=== PATIENT | male | born 1950 | race Caucasian/White ===

== ENCOUNTER 2017-09-27 10:59 | Inpatient (IN) | payer OTHER, BC ==
[2017-09-27] MEDS: NACHLORIDE 0.45% 1,000 ML IV SCH (12:40)
[2017-09-27 12:41] LABS: Absolute Monocytes 0.8 K/uL (0.1-1.3); Absolute Neutrophil 4.8 K/uL (1.8-8.0); Basophils % 0.6 % (0-1.3); Hematocrit 40.9 % (39.6-49.0); Lymphocytes % 25.6 % (15.3-44.8); MCH 30.1 pg (27.0-35.0); MCV 87.3 fL (80-100); MPV 8.4 fL (7.6-11.3); RBC Red Blood Cell Count 4.69 M/uL (4.33-5.43)
[2017-09-27 13:00] LABS: Urine Appearance CLEAR; Urine Bilirubin NEGATIVE (NEG); Urine Blood NEGATIVE (NEG); Urine Color YELLOW; Urine Glucose NEGATIVE (NEG); Urine Protein NEGATIVE (NEG); Urine Urobilinogen 0.2 mg/dL (0.2-1.0)
[2017-09-27] MEDS ORDERED: VANCOMYCIN 1.75 GM in NA CHLORIDE 0.9% 500 ML IVPB SCH (13:00)
[2017-09-27 13:05] LABS: Urine Microscopic Reflex NO UMIC
[2017-09-27 13:10] LABS: Albumin 3.7 g/dL (3.4-5.0); Bilirubin Total 0.7 mg/dL (0.2-1.0); Potassium 4.7 mmol/L (3.5-5.1); Protein, Total 7.5 g/dL (6.4-8.2)
[2017-09-27] MEDS: ACETAMINOPHEN 500 MG TAB PO PRN ×2 (14:06→20:39)
[2017-09-27 14:42] VITALS: O2SAT 98
[2017-09-27] MEDS ORDERED: CYCLOBENZAPRINE 10 MG TAB PO PRN (16:52)
--- NOTE | 2017-09-27 17:15 | RAD REPORT ---
EXAM DESCRIPTION: RAD - Foot Left 2 View - 09/27/2017 4:58 pm CLINICAL HISTORY: Left Great Toe Infected Pain and swelling COMPARISON: 11/01/2016 FINDINGS: Soft tissue swelling is seen about the great toe. No subcutaneous air is seen. No fracture or aggressive marrow lesion. No definitive finding seen to suggest osteomyelitis. If osteomyelitis r emains a clinical concern, MR imaging of would be recommended given its greater sensitivity.
[2017-09-27] MEDS: VALSARTAN 160 MG TAB PO SCH (20:38)
[2017-09-28] MEDS ORDERED: LANSOPRAZOLE PO SCH (09:00)
[2017-09-28] MEDS ORDERED: TERAZOSIN HCL 5 MG CAP PO SCH (09:00)
--- NOTE | 2017-09-28 09:06 | RAD REPORT ---
EXAM DESCRIPTION: US - Abdomen Exam Complete - 09/28/2017 7:59 am CLINICAL HISTORY: Abdominal pain. elevated liver enzymes COMPARISON: No comparisons FINDINGS: Diffuse fatty liver is noted. No focal liver lesions or intrahepatic biliary dilatation is seen. Cholecystectomy. Common bile duct is normal in caliber measuring 7 mm. The right kidney has been removed previously. The left kidney has a normal appearance measuring 11.1 x 5.8 x 5.5 cm. No hydronephrosis or mass. The spleen is normal in size measuring 13 cm. The pancreas and aorta are obscured by bowel gas. The visualized aspects of the IVC are grossly normal. IMPRESSION: Fatty liver. Cholecystectomy and right nephrectomy.
[2017-09-28] MEDS: VALSARTAN 160 MG TAB PO SCH (09:10)
[2017-09-28] MEDS: PANTOPRAZOLE 40MG TABLET PO SCH (09:16)
[2017-09-28] MEDS: NACHLORIDE 0.45% 1,000 ML IV SCH ×2 (09:19→13:23)
[2017-09-28] MEDS ORDERED: NA CHLORIDE 0.9% 1,000 ML IV ONE (10:51)
[2017-09-28 11:53] VITALS: BMI 30.8
[2017-09-28 12:09] LABS: Absolute Lymphocytes (CBC) 1.4 K/uL (0.7-4.9); Absolute Monocytes 0.5 K/uL (0.1-1.3); Absolute Neutrophil 5.1 K/uL (1.8-8.0); Albumin 3.1 g/dL (3.4-5.0); Basophils % 0.3 % (0-1.3); Bilirubin Total 0.5 mg/dL (0.2-1.0); Eosinophils % 2.2 % (0-4.4); Hematocrit 34.9 % (39.6-49.0); Lymphocytes % 19.7 % (15.3-44.8); MCH 30.5 pg (27.0-35.0); MPV 8.4 fL (7.6-11.3); Monocytes % 7.1 % (3.3-12.3); Potassium 4.3 mmol/L (3.5-5.1); Protein, Total 6.4 g/dL (6.4-8.2); RBC Red Blood Cell Count 3.97 M/uL (4.33-5.43)
--- NOTE | 2017-09-28 12:48 | HP ---
Date of Admission: 09/27/2017 Chief Complaint: Pain streaks going of the leg, left foot and left leg. History Of Present Illness: A 67-year-old male was brought to the office with swelling, redness, paula n as well as lymphangitis streaks going of the leg. The patient is admitted because of the lymphangi tis and amount of swelling. There is no history of trauma. Past Medical History: Positive for hypertension, BPH, history of nephrectomy for cancer, and history of osteoarthritis. Family History: Arthritis present. Personal History: No history of alcohol use. Past Surgical History: Positive for gallbladder surgery and nephrectomy. Review of Systems: No chest pain or shortness of breath. Physical Examination: General: Revealed a 67-year-old male in mild to moderate pain. HEENT: Negative. Neck: Supple. JVD negative. Chest: Clear. Heart: Regular. Abdomen: Soft. Extremities: There is diffuse swelling of the left big toe and distal foot and there is lymphangitis extending from the toe to the mid leg. Laboratory Data: White count normal. X-ray of the foot negative for fracture, osteomyelitis. Lab work showed elevation of liver enzymes. Ultrasound of abdomen, evidence of fatty liver. Assessment: 1.Cellulitis and lymphangitis, left foot and left leg. 2.Hypertension. 3.Benign prostatic hypertrophy. 4.Osteoarthritis. Plan: 1.IV vancomycin. 2.Follow up liver enzymes. ADALID/LUC Voice ID: [id number]
[2017-09-28] MEDS ORDERED: VANCOMYCIN 1.75 GM in NA CHLORIDE 0.9% 500 ML IVPB SCH (13:00)
[2017-09-28] MEDS: ACETAMINOPHEN 500 MG TAB PO PRN (14:24)
[2017-09-29] MEDS: NACHLORIDE 0.45% 1,000 ML IV SCH (06:27)
[2017-09-29] MEDS: PANTOPRAZOLE 40MG TABLET PO SCH (08:32)
[2017-09-29 08:44] VITALS: BP 117/68; TEMP 97.5
[2017-09-29 09:45] LABS: ALT/SGPT 66 U/L (12-78); AST/SGOT 29 U/L (15-37); Albumin 3.3 g/dL (3.4-5.0); Alkaline Phosphatase 150 U/L (45-117); BUN Blood Urea Nitrogen 12 mg/dL (7-18); Bicarbonate 28 mmol/L (21-32); Bilirubin Direct < 0.1 mg/dL (0-0.2); Bilirubin Total 0.3 mg/dL (0.2-1.0); Glucose Level 100 mg/dL (74-106); Potassium 4.4 mmol/L (3.5-5.1); Protein, Total 6.3 g/dL (6.4-8.2); Sodium Level 145 mmol/L (136-145)
--- NOTE | 2017-10-31 02:05 | DS ---
Date of Discharge: 09/29/2017 Final Diagnoses: 1.Cellulitis and lymphangitis, left leg and left foot. 2.Hypertension. 3.Benign prostatic hypertrophy. 4.Osteoarthritis. Hospital Course: This patient was brought to the office with lymphangitis and cellulitis of the foot . In view of the lymphangitis, the patient was admitted and started on IV vancomycin. The patient h ad an episode of hypotension. This was corrected by IV fluids. The patient had no evidence of any a cute cause for his hypotension, the patient spontaneously improved and his blood pressure medications were on hold. He was discharged with restriction on his blood pressure medicines and to have outpat ient office visit to readjust his blood pressure medication dose. The patient was asymptomatic at th e time of discharge. Laboratory Data: Please refer to the chart. ADALID/LUC Voice ID: [id number] Report ID: [id number]
== END 2017-09-29 11:45 | disposition home or self-care (01) | DRG 603 ==
LOC: 4TH 11:12 → 3RD-ICU 09-28 11:00 → 4TH 09-28 17:00
PROVIDERS: ADMIT Internal Medicine; ATTEND Internal Medicine
DX: L03.116 Cellulitis of left lower limb (principal); I10 Essential (primary) hypertension; N40.0 Benign prostatic hyperplasia without lower urinary tract symptoms; R74.8 Abnormal levels of other serum enzymes; M19.90 Unspecified osteoarthritis, unspecified site; Z90.5 Acquired absence of kidney; Z85.528 Personal history of other malignant neoplasm of kidney
CPT/HCPCS: 36415; 76700; 80048; 80053; 80076; 81003; 82962; 83605; 84145; 85025; 86803; 87040; J7030

== ENCOUNTER 2020-04-16 07:59 | Day surgery (SDC) | payer OTHER, BC ==
[2020-04-11 11:58] LABS: Absolute Lymphocytes (CBC) 1.6 K/uL (0.7-4.9); Basophils % 0.5 % (0-1.3); Hematocrit 42.2 % (39.6-49.0); Lymphocytes % 21.5 % (15.3-44.8); MPV 8.1 fL (7.6-11.3)
--- NOTE | 2020-04-11 12:04 | RAD REPORT ---
EXAM DESCRIPTION: RAD - Chest Pa And Lat (2 Views) - 04/11/2020 11:52 am CLINICAL HISTORY: preop Chest pain. COMPARISON: No comparisons TECHNIQUE: PA and lateral views of the chest were obtained. FINDINGS: The lungs are hyperexpanded compatible with COPD. The heart is upper limit of normal in si ze. No fracture or aggressive bony process. IMPRESSION: COPD without acute process identified.
[2020-04-11 12:18] LABS: Potassium 4.6 mmol/L (3.5-5.1)
[2020-04-16] MEDS ORDERED: Ringers Lactate 1,000 ML IV ONE ×2 (08:28→10:39)
[2020-04-16] MEDS ORDERED: CEFAZOLIN/SWI 1gm 1 GM/10 ML SYR ONE (08:29)
--- OUTSIDE RECORDS SUMMARY | 2020-04-16 08:36 | XMS REPORT | Summary of Care ---
:1950 Author Organization [facility] - [facility] Address [address] [place] [address] Care Team Providers Name Role Phone Jaswant Mcdowell MD Primary Care Provider Encounter Details Date Type Department Care Team Description 04/09/2020 Orders Only [facility] Doctor Unassigned, No [address] [facility] [place] [address] [address] [place] [place] [id number] Allergies Active Allergy Reactions Severity Noted Date Comments Penicillin Rash 05/18/2016 documented as of this encounter (statuses as of 04/10/2020) Medications Medication Sig Dispensed Refills Start Date End Date Status balsalazide 750 mg Take 750 mg by 0 Active capsule mouth 3 (three) times daily. olmesartan (BENICAR) 20 Take 40 mg by 0 Active mg tablet mouth. celecoxib 200 mg Take 200 mg by 0 Active capsule mouth daily. Fluticasone Propionate, 50 mcg. 0 Active Bulk, 100 % Powd omeprazole (PRILOSEC) Take 20 mg by 0 Active 20 mg capsule mouth daily. terazosin 10 mg capsule Take 10 mg by 0 Active mouth at bedtime. acetaminophen 500 mg Take 500 mg by 0 Active tablet mouth. balsalazide 750 mg Take 750 mg by 0 Active capsule mouth. ciprofloxacin HCl 500 Take 1 tablet by 20 tablet 0 09/20/2019 Active mg tabletIndications: mouth 2 (two) Diverticulitis of large times daily. intestine without perforation or abscess without bleeding proMETHazine 25 mg Take 1 tablet by 12 tablet 0 09/20/2019 Active tabletIndications: mouth every 8 Diverticulitis of large (eight) hours as intestine without needed for Nausea perforation or abscess and Vomiting without bleeding (N/V). acetaminophen-codeine Take 1 tablet by 12 tablet 0 09/20/2019 Active (TYLENOL-CODEINE #3) mouth every 8 300-30 mg (eight) hours as tabletIndications: needed for Pain Diverticulitis of large (scale 4-6). intestine without perforation or abscess without bleeding documented as of this encounter (statuses as of 04/10/2020) Active Problems Problem Noted Date Obesity (BMI 30-39.9) 05/19/2016 Ulcerative colitis Hypertension documented as of this encounter (statuses as of 04/10/2020) Social History Tobacco Use Types Packs/Day Years Used Date Former Smoker Smokeless Tobacco: Never Used Comments: quit in 1999 Alcohol Use Drinks/Week oz/Week Comments Not Asked 0 Standard drinks or equivalent 0.0 Sex Assigned at Date Recorded Not on file documented as of this encounter Last Filed Vital Signs Not on filedocumented in this encounter Plan of Treatment Health Maintenance Due Date Last Done Comments HEPATITIS C (HCV) SCREEN 1950 Depression Screening 1962 DTaP,Tdap,and Td Vaccines (1 - Tdap) 1969 COLON CANCER SCREENING ANNUAL FIT/FOBT 2000 COLON CANCER SCREENING FIT DNA EVERY 3 YEARS 2000 COLON CANCER SCREENING SIGMOIDOSCOPY EVERY 5 YEARS 2000 Zoster Recombinant Vaccine (SHINGRIX) (1 of 2) 2000 LUNG CANCER SCREEN: Recommended for age 55-80 with 30 2005 + pack year history Medicare Wellness Visit 2015 PNEUMOCOCCAL VACCINES 65+ (1 of 1 - PPSV23) 2015 INFLUENZA VACCINE (#1) 2019 COLONOSCOPY 01/03/2029 01/03/2019 Colorectal Cancer Screening 01/03/2029 documented as of this encounter Procedures Procedure Name Priority Date/Time Associated Diagnosis Comme nts AUTHORIZATION FOR RELEASE Routine 04/09/2020 12:01 AM OF PHI VICE PRESIDENT PROCESS AUTHORIZATION FOR RELEASE Routine 04/09/2020 12:01 AM OF [facility] VICE PRESIDENT PROCESS documented in this encounter Results Not on filedocumented in this encounter Insurance Payer Benefit Plan / Subscriber ID Effective Phone Address T e Group Dates MEDICARE MEDICARE PART A [id number] 2015-Pres [phone] [address] [place] Medicare & B ent [id number] [place] [id number] BCBS OF [facility] [id number] 2015-Pres [phone] O [facility] TRADITIONAL ent [phone] [place] [address] documented as of this encounter
--- OUTSIDE RECORDS SUMMARY | 2020-04-16 08:36 | XMS REPORT | Continuity of Care Document ---
:1950 Author Organization [facility] t Address [address] [place] [address] Care Team Providers Name Role Phone OUSMANE JULIAN Primary Care Physician Unavailable Doctor Unassigned, Name Attending Clinician Unavailable ANAID Attending Clinician Unavailable Anaid MARK Attending Clinician Ruben CARDONA Attending Clinician Payers Payer Name Policy Type Policy Number Effective Date Expiration Date S bruno MEDICARE PART A AND [id number] 2015 B 00:00:00 BCBS NON CONTRACTED [id number] 2015 00:00:00 Problems This patient has no known problems. Allergies, Adverse Reactions, Alerts This patient has no known allergies or adverse reactions. Social History Social Habit Start Date Stop Date Quantity Comments Source Sex Assigned At MD Burton Medications Ordered Filled Start Stop Current Ordering Indication Dosage Frequency Signature Comments Components Source Medication Medication Date Date Medication? Clinician (SIG) Name Name balsalazide 2019-03 Yes 750mg Take 750 M D (COLAZAL) 0-16 mg by Anderso 750 mg 14:30: mouth 3 n capsule 05 (three) times a day. cyclobenzap 2019-03 Yes 10mg Take 10 mg MD rine 0-16 by mouth Anderso (FLEXERIL) 14:30: as needed. n 10 mg 05 tablet fluticasone 2019-03 Yes 1{puff} Inhale 1 MD (FLOVENT 0-16 puff by Anderso DISKUS) 50 14:30: mouth as n mcg/actuati 05 needed. on diskus inhaler omeprazole 2019-03 Yes 20mg Take 20 mg M D (PriLOSEC) 0-16 by mouth Sher so 20 mg 14:30: every n capsule 05 morning before breakfast. multivitami 2019-03 Yes 1{capsu Take 1 M D n capsule 0-16 le} capsule by Felipe rso 14:30: mouth n 05 daily. GLUCOSAMINE 2019-03 Yes 1{tbl} Take 1 MD HCL/CHONDR 0-16 tablet by Felipe rso SPANN A NA 14:30: mouth n (OSTEO 05 twice BI-FLEX daily. ORAL) fexofenadin 2019-03 Yes 60mg Take 60 mg MD e (MATT) 0-16 by mouth Felipe rso 60 mg 14:30: daily. n tablet 05 acetaminoph 2019-03 Yes 500mg Take 500 M D en 0-16 mg by Anderso (TYLENOL) 14:30: mouth n 500 mg 05 every 6 tablet (six) hours as needed for mild pain. pseudoephed Yes 30mg Take 30 mg MD rine 7-31 by mouth Anderso (SUDAFED) 16:09: as needed. n 30 mg 24 tablet olmesartan Yes TAKE 1 MD (BENICAR) 7-23 TABLET BY Sher so 40 mg 00:00: MOUTH IN n tablet 00 THE MORNING Vital Signs Vital Name Observation Time Observation Value Comments Source Systolic blood pressure 2020-01-04 17:03:18 150 mm[Hg] MD Burton Diastolic blood pressure 2020-01-04 17:03:18 79 mm[Hg] MD Burton Heart rate 2020-01-04 17:03:18 57 /min MD Sher dill Respiratory rate 2020-01-04 17:03:18 18 /min MD Yaneth lowe Oxygen saturation in 2020-01-04 17:03:18 98 /min MD Burton Arterial blood by Pulse oximetry Procedures Procedure Date / Time Performed Performing Clinician Sourc e CT CHEST ABDOMEN W WO CONTRAST 2020-01-04 16:59:38 Abimael Worrell MD COMPLETE BLOOD COUNT W/ 2020-01-04 13:49:00 Phuong Worrell MD DIFFERENTIAL COMPREHENSIVE METABOLIC PANEL 2020-01-04 13:49:00 Grace Worrell MD Results CBC 2020-01-04 13:49:00 Phuong Worrell MD Anderso n MANUAL DIFFERENTIAL 2020-01-04 13:49:00 Phuong Worrell MD And erson GLUCOSE LEVEL 2020-01-04 13:49:00 Phuong Worrell MD Anderso n BLOOD UREA NITROGEN 2020-01-04 13:49:00 Phuong Worrell MD And erson ELECTROLYTE PANEL 2020-01-04 13:49:00 Phuong Worrell MD Sher son SERUM CREATININE 2020-01-04 13:49:00 Phuong Worrell MD Figueroa on .GLOMERULAR FILTRATION RATE 2020-01-04 13:49:00 Jose J Worrell MD CALCIUM LEVEL TOTAL 2020-01-04 13:49:00 Phuong Worrell MD And erson ALBUMIN LEVEL 2020-01-04 13:49:00 Phuong Worrell MD [place] ALKALINE PHOSPHATASE 2020-01-04 13:49:00 Phuong Worrell MDson ALANINE AMINOTRANSFERASE 2020-01-04 13:49:00 Phuong Worrell ASPARTATE AMINOTRANSFERASE 2020-01-04 13:49:00 Phuong Worrell MD TOTAL PROTEIN 2020-01-04 13:49:00 Phuong Worrell MD [place] FRACTIONATED BILIRUBIN 2020-01-04 13:49:00 Phuong Worrell MD Encounters Start End Encounter Admission Attending Care Care Encounter Source Date/Time Date/Time Type Type Clinicians Facility Department ID 2020-04-09 2020-04-09 Orders Doctor MAJO [id number] 00:00:00 00:00:00 Only Unassigned, RAFA [id number] [place] [facility] [id number] 2020-01-09 2020-01-09 Outpatient TAWANDA WORRELL MDA MDA [id number] 16:35:47 19:07:49 PHUONG holt 2020-01-04 2020-01-04 Outpatient TAWANDA WORRELL MDA MDA [id number] 08:59:32 08:59:32 PHUONG holt 2020-01-04 2020-01-04 Outpatient TAWANDA WORRELL MDA MDA [id number] 08:48:43 08:52:41 CATERINAGA frazierso n 2019-12-12 2019-12-12 Outpatient TAWANDA WORRELL MDA MDA [id number] 00:00:00 00:00:00 CHEKOSHAWN frazierso n 2019-12-10 2019-12-10 Outpatient TAWANDA WORRELL MDA MDA [id number] 00:00:00 00:00:00 CHEKOSHAWN frazierso yanet 2019-12-10 2019-12-10 Outpatient TAWANDA WORRELL MDA MDA [id number] 00:00:00 00:00:00 CHEKOSHAWN frazierso n 2019-09-20 2019-09-20 Emergency [place], [facility] [id number] 16:23:27 19:18:00 [facility] [place] [id number] [place] [id number] [place] [id number] Results Test Description Test Time Test Comments Results Result [facility] e Comments CT Chest Abdomen 2020-01-07 Stable postsurgical MD Burton with and without 12:32:11 changes related to Contrast right nephrectomy no local recurrence or new metastasis is identified in the chest abdomen.. 2 hypervascular lesions noted in the left kidney concerning for neoplasm.Interface, Radiology Results In - 01/07/2020 7:34 AM CDTFULL RESULT:Examination: CT CHEST ABDOMEN W WO CONTRAST, 01/04/2020 11:59 AMClinical History: Malignant neoplasm of right kidney, except renal pelvisIndication: history of renal cell carcinomaComparison: 10/13/2018Technique: CT of the abdomen was performed without intravenous contrast followed by CT of the chest and abdomen with intravenous contrast.Findings: Chest:Thyroid nodule again noted.Stable appearance of the lungs no suspicious new pulmonary nodules, calcified granuloma right lower lobeAtelectasis lung basesNo significant new mediastinal hilar or axillary lymphadenopathy.An pelvis:Mild diffuse fatty infiltration of the liver, no suspicious new focal liver lesions gallbladder is surgically absent. Stable appearance of CBD not significant dilated pancreas, spleen, adrenal glands remain stable in comparison to prior studyLeft kidney is stable hypervascular exophytic lesion noted lower pole left kidney measuring 0.8 cm and hypervascular lesion in the upper pole measures 1.2 cm, series 15 image 221.Stable postsurgical changes related to right nephrectomy, no local recurrence identifiedNo significant mesenteric or retroperitoneal lymphadenopathy stable subcentimeter lymph nodesNo suspicious new osseous lesions.IMPRESSION:S table postsurgical changes related to right nephrectomy no local recurrence or new metastasis is identified in the chest abdomen..2 hypervascular lesions noted in the left kidney concerning for neoplasm.
[2020-04-16] MEDS ORDERED: FENTANYL CITR 100 MCG/2 ML ONE ×2 (09:28→10:31)
[2020-04-16] MEDS ORDERED: propofoL 200 MG/20 ML VIAL IV ONE (09:28)
[2020-04-16] MEDS ORDERED: LIDOCAINE 2% MPF 5 ML VIAL ONE (09:28)
[2020-04-16] MEDS ORDERED: ONDANSETRON 4 MG/2 ML VIAL ONE (09:30)
[2020-04-16] MEDS ORDERED: dexAMETHasone 4 MG/ML VIAL ONE (09:30)
[2020-04-16] MEDS ORDERED: EPHEDRINE SULF 50 MG/ML VIAL ONE (10:11)
[2020-04-16 11:45] VITALS: TEMP 97.2
--- NOTE | 2020-04-16 11:47 | OP ---
Date of Procedure: 04/16/2020 Surgeon: Faraz Merino MD Police Officer Booking: LALO Ortega. Preoperative Diagnosis: Incarcerated right inguinal hernia. Postoperative Diagnosis: Incarcerated right inguinal hernia. Procedure: Repair of incarcerated right inguinal hernia. Estimated Blood Loss: Minimal. Specimen: Hernia sac and cord lipoma. Findings: As above. Anesthesia: General. Complications: None. Disposition: The patient tolerated the procedure in stable condition, taken to Recovery in good gene ral condition. Procedure In Detail: The patient was brought to the OR and placed in supine position. General anest hesia begun. The patient was prepped and draped in the usual sterile fashion. Marcaine 0.5% was inf iltrated in a field block fashion in the right groin and then 15-blade was used to make a 4 cm obliqu e incision between the pubic tubercle and the anterior iliac superior spine. Subcutaneous tissues we re divided. Candelario fascia was identified and divided. Aponeurosis was identified and mobilized infe riorly to expose shelving edge then opened to the external ring. The ilioinguinal nerve was identifi ed and retracted out of the field of dissection. Cord was mobilized and skeletonized. A large cord lipoma and hernia sac were identified. The incarcerated organs were placed back into the peritoneal cavity easily and then, a high ligation of the hernia sac and cord lipoma done with 2-0 Prolene sutur e ligature free and tie. Both structures excised and sent to Pathology as a specimen. Then, Marlex mesh plug placed in the internal ring and secured with VersaTack stapler. Onlay mesh placed on the i nguinal floor, secured medially to the pubic tubercle, superiorly to the conjoined tendon, and inferi dee dee to the shelving edge laterally to each other and then cord structures and ilioinguinal nerves we re placed back in anatomical location. A 2-0 Prolene was used to close the aponeurosis and 3-0 chrom ic used to close the Candelario fascia. Armaan were used to close the skin. Sterile dressing was appli ed. The patient was awakened and taken to Recovery in good general condition. Discharge Note: The patient will go to Day Surgery and home when stable. Disposition: Home. Condition: Stable. Discharge Instructions: Resume home medications and diet. Activity as tolerated. No heavy lifting. Remove outer dressing in 2 days. Shower. Keep wound clean and dry. Follow up in my office in a w [place]. Call for appointment. Tylenol No.3 one tablet p.o. q.4 p.r.n. pain. Scrotal support and ice p ack as ordered. /MODL Voice ID: [id number] Report ID: [id number]
[2020-04-16] MEDS ORDERED: HYDROCODONE/APAP 7.5/325 MG TAB ONE (12:12)
[2020-04-16] MEDS ORDERED: TAMSULOSIN 0.4 MG SR CAP ONE (12:12)
[2020-04-16 13:12] VITALS: BP 133/79; O2SAT 96
== END 2020-04-16 13:00 | disposition home or self-care (01) ==
LOC: OR 07:59
PROVIDERS: ATTEND Surgery
PROC: 0YU50JZ Supplement Right Inguinal Region with Synthetic Substitute, Open Approach (ICD-10-PCS; principal; 2020-04-16 09:00)
DX: K40.30 Unilateral inguinal hernia, with obstruction, without gangrene, not specified as recurrent (principal); Z20.822 Contact with and (suspected) exposure to COVID-19; Z88.0 Allergy status to penicillin
CPT/HCPCS: 93005; 85025; 80048; 36415; 88302; 88311; 71046; 49507; U0002; J2704; J1100; J3010 ×2; J0690; J7120 ×2; J2405